=== PATIENT | female | born 1990 | race Caucasian/White ===

== ENCOUNTER 2020-05-09 13:53 | Emergency (ER) | payer OTHER, SELFPAY ==
[2020-05-09 14:04] VITALS: BP 130/76; PULSE 81; RESP 20; TEMP 36.9; O2SAT 100
--- NOTE | 2020-05-09 14:40 | ED.GENADUL_ITS ---
Discharge Plan Disposition Patient Disposition: HOME Condition: Stable Discharge Details Chief Complaint: Laceration Clinical Impression: Laceration Primary Care Provider: Yessenia,Local ED Provider: Rosibel Valentino Home Meds and New Rx's Prescriptions: New amoxicillin-pot clavulanate [Augmentin] 875-125 mg tablet 1 tab PO BID 5 Days Qty: 10 RF: 0 No Action levonorgestrel-ethinyl estrad 0.15 mg-30 mcg (91) Tablets,Dose Pack,3 Month RF: 0 Discharge Instructions Instructions: Laceration (ED) Additional Instructions: Follow up with primary care provider in 3-5 days. Return to ED sooner if any worsening or concerns. Increase oral fluids. Please take Tylenol or Ibuprofen with food every 4-6 hours as needed for pain and swelling. Take medications as directed. Referrals: Crystal Shaw [Emergency Nurse] - Discharge Data Discharge Date/Time-TO BE ENTERED AT DEPARTURE: 05/09/20 16:00 Medical Decision Making Patient reports that she was opening a box with a machete yesterday at 6 PM and accidentally cut her anterior elkins. She states increased pain with walking. Is concerned for infection. At this time the wound is nonsuturable. Will perform wound care obtain imaging to rule out foreign body and placed on Augmentin twice daily. There is a proximately 3 cm laceration noted star-shaped with flap to anterior elkins no surrounding erythema or swelling no active bleeding at this time. Subcutaneous tissue is involved. Imaging obtained to rule out foreign body or underlying fracture. EXAM: XR TIB/FIB RT CLINICAL HISTORY: Laceration rule out foreign body. TECHNIQUE: 2D digital imaging was performed. COMPARISON: No exams were available for comparison FINDINGS: BONES: No acute fracture is present. No bony destructive lesion is seen. Visualized portion of knee and ankle joints are unremarkable. SOFT TISSUE: There is a laceration in the soft tissues anterior to the proximal tibia and fibula. No radiopaque foreign body is identified. IMPRESSION: No radiopaque foreign body. Dressing applied with bacitracin prior to discharge, patient placed on Augmentin 1 tablet p.o. twice a day x5 days to treat empirically prophylactically for infection. Patient is ambulatory without difficulty in department. HPI General Mode of arrival: ambulatory . Date/Time Provider Initiated Documentation: 05/09/20 14:35 . Limitations to Documentation: no limitations . Information obtained by: patient . HPI Narrative: Patient reports that she was opening a box with a machete yesterday at 6 PM and accidentally cut her anterior elkins. She states increased pain with walking. Is concerned for infection. At this time the wound is nonsuturable. Will perform wound care obtain imaging to rule out foreign body and placed on Augmentin twice daily. There is a proximately 3 cm laceration noted star-shaped with flap to anterior elkins no surrounding erythema or swelling no active bleeding at this time. Subcutaneous tissue is involved. Related Data Home Medications Medication Instructions Recorded Confirmed amoxicillin-pot clavulanate 1 tab PO BID 5 Days #10 tab 05/09/20 [Augmentin] levonorgestrel-ethinyl estrad 05/09/20 Previous Rx's Medication Instructions Recorded amoxicillin-pot clavulanate 1 tab PO BID 5 Days #10 tab 05/09/20 [Augmentin] Allergies Allergy/AdvReac Type Severity Reaction Status Date / Time acetaminophen [From Vicodin] AdvReac Unverified 05/09/20 14:09 hydrocodone [From Vicodin] AdvReac Unverified 05/09/20 14:09 General Stated Complaint: Laceration GUIDO: 4 Review of Systems Narrative: Constitutional: Negative for weight loss, alert and oriented, well groomed, normal body habitus, appears comfortable. All systems reviewed & are unremarkable except as noted in HPI and below Integumentary/Breasts Comments: Laceration noted left anterior elkins approximately 12 hours old. [facility] Social History Smoking/Tobacco Use Status: Never Alcohol Intake: current Substance use type: does not use Do you feel safe at home: Yes Do you feel safe in your relationship?: Yes Exam Narrative Exam Narrative: Constitutional: Alert and oriented x3. Appears stated age. Normal body habitus. Head: Normocephalic, no trauma. Eyes: Pupils PERRLA, Red reflex noted, EOM's intact. Eyelids symmetrical without lesions, discharge, or swelling. ENT: Bilateral TM's WNL, External ear normal to inspection, no mastoid TTP, swelling, or erythema, Nasal turbinates WNL, no nasal discharge. Normal dentition, Posterior pharynx WNL, no exudate. Chest: RRR, Normal S1, S2, distal pulses intact. Resp: Lungs clear to auscultation bilaterally, no wheezes, rales, or rhonchi. Musculoskeletal: Normal gait, 5/5 strength to all four extremities. Skin: 3 cm laceration noted to right anterior elkins, stellate in shape with a flap, capillary refill less than 2 sec. Neurologic: Cranial nerves II-XII intact. Alert and oriented x 3. DTR's intact. Hematologic/Lymphatic: No ecchymosis, no lymphadenopathy. Course Vital Signs Vital signs: Vital Signs Temperature 36.9 C 05/09/20 14:04 Pulse 81 05/09/20 14:04 Respiratory Rate 05/09/20 14:04 Blood Pressure 130/76 05/09/20 14:04 Pulse Oximetry 100 05/09/20 14:04 Temperature 36.9 C 05/09/20 14:04 Temperature Source Oral 05/09/20 14:04 Pulse 81 05/09/20 14:04 Respiratory Rate 20 05/09/20 14:04 Respiratory Effort 05/09/20 14:11 Blood Pressure 130/76 05/09/20 14:04 Pulse Oximetry 100 05/09/20 14:04 Oxygen Delivery Method Room Air 05/09/20 14:04 Oxygen Flow Rate 0 05/09/20 14:04 Pain Level 6 05/09/20 14:04
--- NOTE | 2020-05-09 15:20 | DI.RAD_ITS ---
EXAM: XR TIB/FIB RT CLINICAL HISTORY: Laceration rule out foreign body. TECHNIQUE: 2D digital imaging was performed. COMPARISON: No exams were available for comparison FINDINGS: BONES: No acute fracture is present. No bony destructive lesion is seen. Visualized portion of knee a nd ankle joints are unremarkable. SOFT TISSUE: There is a laceration in the soft tissues anterior to the proximal tibia and fibula. No radiopaque foreign body is identified. IMPRESSION: No radiopaque foreign body. DATA REPOSITORY: RADIATION DOSE DELIVERED:
[2020-05-09] MEDS: Amoxicillin 875/Clav. 125 TAB PO (15:58)
== END 2020-05-09 16:00 | disposition home or self-care (01) ==
PROVIDERS: Emergency Provider Registered Nurse Emergency
DX: S81.811A Laceration without foreign body, right lower leg, initial encounter (principal); W27.0XXA Contact with workbench tool, initial encounter
CPT/HCPCS: 81025; 99283; 73590